=== PATIENT | male | born 1935 | race Caucasian/White ===

== ENCOUNTER 2017-10-20 11:04 | Day surgery (SDC) | payer MEDICARE ==
[2017-10-19 08:59] VITALS: BMI 31.1
[2017-10-20] MEDS ORDERED: CEFAZOLIN/Water 2 GM/20 ML SYRINGE ONE (12:19)
[2017-10-20] MEDS ORDERED: Bupivacaine HCl 0.5%/Epinephrine 1:200,000/PF 30 ml Vial ONE (12:39)
[2017-10-20] MEDS ORDERED: Lidocaine 2% 10 ML INJ ONE (12:39)
[2017-10-20] MEDS ORDERED: Fentanyl 100 MCG/2 ML VIAL ONE (12:48)
[2017-10-20] MEDS ORDERED: Midazolam HCl 2 mg/2 ml Vial ONE (12:48)
--- NOTE | 2017-10-21 01:06 | OP ---
DATE OF PROCEDURE: 10/20/2017 PREOPERATIVE DIAGNOSIS: Soft tissue mass, buttock. POSTOPERATIVE DIAGNOSIS: Soft tissue mass, buttock. PROCEDURE: Excision of soft tissue mass, buttock, 4 cm. SURGEON: Jethro Ashley M.D. ANESTHESIA: General. ESTIMATED BLOOD LOSS: Minimal. COMPLICATIONS: None. SPECIMEN: Soft tissue mass. TECHNIQUE: The patient was taken to the operating room and placed supine on the table. After sedati on was obtained, he was placed in left lateral decubitus position. The area around the buttock is pr epped and draped in a sterile fashion. An elliptical incision was used to ellipse out the pedunculat ed mass including the subcutaneous fat underneath. Specimen was sent to path for final diagnosis. T he wound was irrigated and closed using 3-0 Vicryl, 4-0 Monocryl, and Dermabond. The patient was en route to recovery in stable condition. All instrument counts, needle counts, lap counts were correct .
== END 2017-10-20 15:15 | disposition home or self-care (01) ==
LOC: SDC 11:04
PROVIDERS: ATTEND Surgery
PROC: 0JB70ZZ Excision of Back Subcutaneous Tissue and Fascia, Open Approach (ICD-10-PCS; principal; 2017-10-20)
DX: D18.09 Hemangioma of other sites (principal); I10 Essential (primary) hypertension; E11.9 Type 2 diabetes mellitus without complications; I25.10 Atherosclerotic heart disease of native coronary artery without angina pectoris; Z88.1 Allergy status to other antibiotic agents; Z79.84 Long term (current) use of oral hypoglycemic drugs; Z79.899 Other long term (current) drug therapy
CPT/HCPCS: 36416; 88305; J0670; J2250; J3010

== ENCOUNTER 2018-01-08 21:12 | Inpatient (IN) | payer MEDICARE ==
[2018-01-08 21:42] LABS: Bilirubin Large (Negative); Blood, Urine Large (Negative); Clarity TURBID (Clear); Glucose, Urine (Dipstick) Negative (Negative); Leukocyte Large (Negative); Nitrite Positive (Negative); Protein, Urine (Dipstick) 300 mg/dL (Neg-Trace); Specific Gravity, Urine 1.015 (1.002-1.036); pH, Urine 7.5 (5.0-9.0)
[2018-01-08 21:47] LABS: Pathc Cast-AUWi Flag 20.82 (0-2.49); RBC/HPF GREATER THAN 50-TNTC HPF (0-3); Yeast-AUWi Flag 1976.6 (0-25.0)
[2018-01-08 21:48] LABS: Bacteria/HPF 2+ HPF (None Seen); Yeast-All Forms None Seen HPF (None Seen)
[2018-01-08 21:49] LABS: Crystals/HPF 2+ AMORPH PHOS HPF (Negative); Hyaline Casts/LPF 0-3 HYALINE CAST LPF (0-3 Hyaline); Manual Microscopic Reviewed? No Path Casts Seen
[2018-01-08 22:03] LABS: #Eosinphils 0.6 thou/uL (0.0-0.7); #Lymphocytes 1.4 thou/uL (1.20-3.40); #Monocytes 1.1 thou/uL (0.11-0.59); #Neutrophils 6.6 thou/uL (1.40-6.50); %Basophils 0.3 % (0.0-1.0); %Eosinophils 6.2 % (0.0-10.0); %Lymphocytes 14.6 % (21.0-51.0); %Monocytes 10.9 % (0.0-10.0); Hemoglobin 13.6 g/dL (14.0-18.0); Mean Corpuscular HGB CONC 32.9 g/dL (32.0-36.0); Mean Corpuscular Volume 91.2 fL (78.0-98.0); Mean Platelet Volume 6.3 fL (7.4-10.4); Platelet Count 367 thou/uL (130-400); RBC Distribution Width 12.8 % (11.5-14.5); Red Blood Cell (RBC) Count 4.54 mill/uL (4.70-6.10); White Blood Cell (WBC) Count 9.6 thou/uL (4.8-10.8)
[2018-01-08] MEDS ORDERED: Lidocaine 1% PF 5 ML VIAL ONE (22:04)
[2018-01-08] MEDS ORDERED: cefTRIAXone\\ROCEPHIN 1 GM VIAL ONE (22:04)
[2018-01-08 22:23] LABS: ALT (SGPT) Less than 7 U/L (8-55); AST (SGOT) 16 U/L (5-34); Albumin 3.2 g/dL (3.4-4.8); Alkaline Phosphatase 175 U/L (40-150); Anion Gap 11 mmol/L (10-20); BUN (Urea Nitrogen) 17 mg/dL (8.4-25.7); Bilirubin, Total 0.4 mg/dL (0.2-1.2); Calc. Creatinine Clearance 0 mL/min (70-130); Calcium 8.7 mg/dL (7.8-10.44); Carbon Dioxide 29 mmol/L (23-31); Chloride 102 mmol/L (98-107); Estimated GFR-MDRD 34; Globulin 3.7 g/dL (2.4-3.5); Glucose 163 mg/dL (83-110); Protein, Total 6.9 g/dL (5.8-8.1); Sodium 138 mmol/L (136-145)
[2018-01-09] MEDS ORDERED: cefTRIAXone\\ROCEPHIN 1 GM VIAL ONE (00:01)
[2018-01-09] MEDS ORDERED: Ondansetron ODT 4 MG TAB SL PRN (01:44)
[2018-01-09] MEDS ORDERED: Acetaminophen 325 MG TAB PO PRN ×2 (01:44→11:59)
[2018-01-09] MEDS ORDERED: Ondansetron HCl/PF 4 MG/2 ML Vial IVP PRN ×2 (01:44→11:59)
[2018-01-09] MEDS ORDERED: Sodium Chloride 0.9% 1,000 ML IV SCH (01:45)
[2018-01-09 01:50] VITALS: BMI 30.6
[2018-01-09] MEDS ORDERED: VANCOMYCIN IVPB PRN (05:57)
[2018-01-09] MEDS ORDERED: Nystatin Cream 15 GM TUBE TOP SCH (09:00)
--- NOTE | 2018-01-09 10:26 | ULT ---
RENAL ULTRASOUND: HISTORY: UTI, hematuria. FINDINGS: Real-time imaging of the right and left kidneys were performed. The right kidney measured 11.1 and t he left kidney 10.8 cm in size. In the mid pole region of the right kidney is a somewhat hypoechoic focus very similar in echogenicity to the cortex but extending more into the renal pelvis than typica jaimey seen. I still feel that this is related to the cortex but given the history of hematuria, the po ssibility of a mass was not totally excluded. The left kidney shows a suggestion of some mild cortic al thinning. There is no obstruction. The bladder has a Pena catheter in place. IMPRESSION: Hypoechoic area in the mid pole renal pelvis on the right. I think this is just invagination of the cortex, but it has a somewhat unusual appearance and extends more into the renal pelvis than would be typically seen for lobulation. Given the history of hematuria, I cannot definitely exclude the poss ibility of a mass and I would suggest a CT using renal mass protocol for further assessment. POS: [facility]
[2018-01-09] MEDS ORDERED: Calcium Carbonate 500 MG ChewTAB PO PRN (11:59)
[2018-01-09] MEDS ORDERED: Ondansetron ODT 4 MG TAB PO PRN (11:59)
[2018-01-09] MEDS ORDERED: Milk Of Magnesia 30 ML UDCUP PO PRN (12:05)
[2018-01-09] MEDS ORDERED: Senokot 8.6 MG TAB PO PRN (12:05)
[2018-01-09] MEDS ORDERED: Dextrose 5% in Water 1,000 ML IV PRN (12:09)
[2018-01-09] MEDS ORDERED: Insulin Regular 300 UNITS/3 ML VIAL SC PRN (12:09)
[2018-01-09] MEDS ORDERED: Dextrose 50% Abboject 50 ML SYRINGE SLOW IVP PRN (12:09)
[2018-01-09 12:43] LABS: #Eosinphils 0.4 thou/uL (0.0-0.7); #Lymphocytes 0.9 thou/uL (1.20-3.40); #Monocytes 0.7 thou/uL (0.11-0.59); #Neutrophils 6.5 thou/uL (1.40-6.50); %Basophils 0.2 % (0.0-1.0); %Eosinophils 4.4 % (0.0-10.0); %Lymphocytes 10.3 % (21.0-51.0); %Monocytes 8.4 % (0.0-10.0); %Neutrophils 76.7 % (42.0-75.0); Hemoglobin 12.9 g/dL (14.0-18.0); Mean Corpuscular Volume 90.6 fL (78.0-98.0); Mean Platelet Volume 6.5 fL (7.4-10.4); Platelet Count 323 thou/uL (130-400); RBC Distribution Width 12.8 % (11.5-14.5); Red Blood Cell (RBC) Count 4.45 mill/uL (4.70-6.10); White Blood Cell (WBC) Count 8.5 thou/uL (4.8-10.8)
--- NOTE | 2018-01-09 12:56 | HP ---
DATE OF ADMISSION: 01/09/2018 PRIMARY CARE PHYSICIAN: Tanya Louis M.D. PRIMARY NEUROLOGIST: Jaya Astudillo M.D. Primary urologist: Dr. Cabrera. CHIEF COMPLAINT: Gross hematuria with lower abdominal discomfort. HISTORY OF PRESENT ILLNESS: The patient is an 82-year-old male with chronic indwelling Pena cathete r secondary to benign prostatic hypertrophy, Parkinson disease, diabetes mellitus type 2, hypertensio n who presented to the emergency room with above complaints. The patient has a chronic indwelling Pena catheter for 3 months or so. He was seen by his urologist last week and had a catheter changed. Subsequently at home, the catheter stopped draining. The pat ient was seen by the home healthcare and the catheter was adjusted after which he started draining ur ine. Next day, the patient noticed gross hematuria along with increasing discomfort for which he pre sented to the emergency room. He denies any fever, chills, or flank pain. He is currently on naprox en for degenerative joint disease. He does not take any other antiplatelet or anticoagulants. Yaquelin soares note the patient is a poor historian and not much information is available from the patient. No fa ezra was at the bedside. In the emergency room, his initial vital signs showed temperature 98.1, respirations 20, pulse rate o f 81 with a blood pressure of 128/63, O2 saturation 96% on room air. He was found to have acute kidn ey injury with creatinine 1.88 with a baseline creatinine around 1.4. His urinalysis showed greater than 50 WBCs and RBCs with 2+ bacteria. He received vancomycin and Rocephin. Blood and urine cultur es were sent. PAST MEDICAL HISTORY: 1. Diabetes mellitus type 2. 2. Hypertension. 3. History of bladder cancer. 4. Hyperlipidemia. 5. Physical deconditioning. 6. Parkinson disease. 7. Degenerative joint disease. 8. Benign prostatic hypertrophy. PAST SURGICAL HISTORY: 1. Appendectomy. 2. Bladder cancer removal. 3. Tonsillectomy. 4. Adenoidectomy. 5. Hip surgery. 6. Gallbladder surgery. 7. Excision of the soft tissue mass earlier this year. ALLERGIES: Patient is allergic to LEVAQUIN, reaction unknown. CURRENT HOME MEDICATIONS: Naproxen 220 mg daily, Sinemet 25-50 one tablet t.i.d., finasteride 5 mg d aily, glimepiride 0.5 mg tablet 3 times a day, Lisinopril 2.5 mg daily, metformin 500 mg at night and 250 mg daily, Procardia-XL 30 mg daily, pravastatin 40 mg daily, ranitidine 150 mg daily, Flomax 0.4 mg daily. FAMILY HISTORY: Positive for hypertension, diabetes, and CVA. SOCIAL HISTORY: The patient currently has home healthcare twice a week. He is unable to recall the name of the agency. He denies any smoking, alcohol. Lives at home with his . He is F[employer] a nd his is the decision maker. REVIEW OF SYSTEMS: The following complete review of systems was negative, unless otherwise mentioned in the HPI or below: Constitutional: Weight loss or gain, ability to conduct usual activities. Sk in: Rash, itching. Eyes: Double vision, pain. ENT/Mouth: Nose bleeding, neck stiffness, pain, te nderness. Cardiovascular: Palpitations, dyspnea on exertion, orthopnea. Respiratory: Shortness of breath, wheezing, cough, hemoptysis, fever or night sweats. Gastrointestinal: Poor appetite, abdom inal pain, heartburn, nausea, vomiting, constipation, or diarrhea. Genitourinary: Urgency, frequenc y, dysuria, nocturia. Musculoskeletal: Pain, swelling. Neurologic/Psychiatric: Anxiety, depressio n. Allergy/Immunologic: Skin rash, bleeding tendency. PHYSICAL EXAMINATION: VITAL SIGNS: As discussed above. GENERAL: An 82-year-old male in mild distress due to discomfort secondary to Pena along with erythe ma in the groin. HEENT: Atraumatic, normocephalic. Sclerae are anicteric. Moist mucous membrane, no oral lesion. NECK: Supple, no JVD, no carotid bruit. LUNGS: Clear to auscultation bilaterally, no wheezing, rales or rhonchi. HEART: S1, S2 present. Regular rate and rhythm, 2/6 systolic murmur over the mitral area. No heave s or pulsation. ABDOMEN: Soft, mild tenderness in the infraumbilical area. No rebound, guarding, no costovertebral angle tenderness. EXTREMITIES: No edema or calf tenderness. GENITOURINARY: Pena catheter noted draining bright red urine with some clots. There is excoriation in the groin along with erythema and warmth. NEUROLOGIC: Grossly nonfocal, moves all four extremities. No new focal deficit appreciated. PSYCHIATRY: Alert and awake. SKIN: Warm and dry other findings as discussed above. PERIPHERAL VASCULAR: Radial pulses palpable bilaterally. MUSCULOSKELETAL: No joint swelling or tenderness. LABORATORY FINDINGS: 1. Renal ultrasound showed some hypoechoic area in the mid pole of the renal pelvis on the right. 2. CBC showed WBC 9.6 with hemoglobin 13.6, hematocrit 41.4, platelet 367. Chemistries showed sodiu m 138, potassium 4, chloride 102, bicarbonate 29, BUN 17, creatinine 1.88. 3. Albumin 3.2 with total protein 6.9. IMPRESSION: 1. Catheter associated urinary tract infection with gross hematuria and cellulitis of the perineal a brett. 2. Acute blood loss anemia. 3. Acute kidney injury on chronic kidney disease stage 3. 4. Diabetes mellitus type 2. 5. Hypertension. 6. Obesity with a BMI 30.6. 7. Dehydration. 8. Benign prostatic hypertrophy. 9. Degenerative joint disease. 10. Hyperlipidemia. 11. Gastroesophageal reflux disease. PLAN: The patient will be monitored on the medical floor. Urology will be consulted. We will start him on gentle hydration. We will hold lisinopril. We will discontinue nonsteroidal anti-inflammato ry drugs. We will continue ceftriaxone. We will also continue vancomycin for cellulitis. We will a wait blood and urine culture. We will also add nystatin powder. Patient will probably require CBI. He may probably require a CT renal mass protocol due to abnormal renal ultrasound. Further manageme nt for gross hematuria per Urology. We will monitor H and H closely. Consult physical therapy, occu pation therapy. Deep venous thrombosis prophylaxis with sequential compression devices. Plan of care was discussed with the patient in detail. He stated understanding.
[2018-01-09] MEDS ORDERED: Vancomycin HCl 1 GM in Premix Bag 1 BAG IVPB SCH ×3 (13:00→23:59)
[2018-01-09 13:04] LABS: Anion Gap 13 mmol/L (10-20); BUN (Urea Nitrogen) 20 mg/dL (8.4-25.7); Calc. Creatinine Clearance 57 mL/min (70-130); Calcium 8.3 mg/dL (7.8-10.44); Carbon Dioxide 24 mmol/L (23-31); Chloride 105 mmol/L (98-107); Estimated GFR-MDRD 48; Glucose 171 mg/dL (83-110); Potassium 4.2 mmol/L (3.5-5.1); Sodium 138 mmol/L (136-145)
[2018-01-09] MEDS: Carbidopa/Levodopa 25-250 mg Tablet PO SCH ×2 (14:36→20:15)
[2018-01-09] MEDS: Sodium Chloride 0.9% 1,000 ML IV SCH (14:36)
[2018-01-09] MEDS: Vancomycin HCl 1.5 GM in Sodium Chloride 0.9% 250 ML 300 ML IVPB SCH (17:34)
[2018-01-09] MEDS: Finasteride 5 MG TAB PO SCH (20:14)
[2018-01-09] MEDS: Docusate 100 MG CAP PO SCH (20:14)
[2018-01-09] MEDS: Tamsulosin HCl 0.4 MG CAP PO SCH (20:14)
[2018-01-09] MEDS: TROSPIUM 20 MG TABLET PO SCH (20:14)
[2018-01-09] MEDS: Famotidine 20 MG TAB PO SCH (20:15)
[2018-01-09] MEDS ORDERED: Atorvastatin Calcium 10 MG TAB PO SCH (21:00)
[2018-01-09] MEDS ORDERED: Pravastatin Sodium 40 MG TAB PO SCH (21:00)
[2018-01-09] MEDS: cefTRIAXone\\ROCEPHIN 1 GM in Sodium Chloride 0.9% 100 ML IVPB SCH (22:06)
--- NOTE | 2018-01-09 23:31 | CON ---
DATE OF CONSULTATION: 01/09/2018 CONSULTING PHYSICIAN: Desean Norris MD MIXING AND MOLDING MACHINE OPERATOR: Sachin Liu MD REASON FOR CONSULTATION: Gross hematuria and urinary tract infection. HISTORY OF PRESENT ILLNESS: Mr. Castillo is an 82-year-old white male with a history of bladder canc er and urinary retention, currently managed by Dr. Cabrera at the [facility], who is his current urologist . The patient has a history of bladder cancer, which has previously been treated with Dr. Weston in the remote past. He has had surveillance cystoscopies with Dr. Cabrera since then, but has only a ctually had one with Dr. Cabrera about 4 months ago. He also has a history of an enlarged prostate , which was treated with TUMT in the past with Dr. Weston. Apparently, the patient has had signific ant amount of urinary problem since then and actually had ultimately went into urinary retention appr oximately 3-4 months ago. He has had a number of attempted void trial since then, which have failed and so the patient is kept in an indwelling catheter due to his comorbidities, nonambulatory status, and significant difficulty with urination. The patient began having blood in his urine and around hi s catheter yesterday, and he was brought into the emergency room due to this issue. He was found to have likely urinary tract infection and was started on antibiotics. I was consulted for further assi stance due to his hematuria. On my discussion with the patient, he currently states that he is not h aving any pain. He is leaking a lot of bloody urine around his catheter, but his catheter continues to drain. From this morning, his urine was very red, but has now cleared up quite a bit to just a tr anslucent dark pink. He denies any bladder spasms. He denies any chest pain, shortness of breath, n ausea, vomiting, lightheadedness, dizziness, or catheter-related pain. He has already been started o n antibiotics. He does have an elevated creatinine with a baseline around 1.4 with a creatinine curr ently around 1.88. PAST MEDICAL HISTORY: 1. Diabetes mellitus type 2. 2. Hypertension. 3. Bladder cancer. 4. Hyperlipidemia. 5. Physical deconditioning. 6. Parkinson's disease. 7. Degenerative joint disease. 8. Benign prostatic hypertrophy. 9. Chronic lower extremity edema. PAST SURGICAL HISTORY: 1. Appendectomy. 2. TURBT. 3. Tonsillectomy. 4. Adenoidectomy. 5. Hip surgery. 6. Cholecystectomy. 7. Excision of soft tissue mass on his buttocks earlier this year by Dr. Ashley. HOME MEDICATIONS: 1. Naproxen. 2. Sinemet. 3. Finasteride. 4. Glimepiride. 5. Lisinopril. 6. Metformin. 7. Procardia. 8. Ranitidine. 9. Flomax. ALLERGIES: LEVAQUIN. FAMILY HISTORY: Significant for hypertension, diabetes, and history of CVA. SOCIAL HISTORY: The patient currently lives at home, but receives home health care. He denies smoki ng or alcohol abuse. He apparently smoked in the past. He lives at home with his . REVIEW OF SYSTEMS: A 12-point review of systems was reviewed and otherwise negative, other than what was commented on the HPI. Specifically, the hematuria and urinary retention. PHYSICAL EXAMINATION: VITAL SIGNS: Temperature 97.8, pulse 74, respirations 20, blood pressure 128/72, saturation 96% on r oom air. GENERAL: No apparent distress, communicative and alert, answering questions appropriately. He appea rs stated age, well nourished, well developed. HEENT: Normocephalic, atraumatic. Sclerae are nonicteric. Pupils are symmetric and round. Moist m ucous membranes. Trachea midline. CARDIOVASCULAR: Regular rate and rhythm. Normal S1 and S2. Symmetric pulses. CHEST: No increased work of breathing. Symmetric expansion of lungs. Clear anteriorly. ABDOMEN: Soft, nontender, nondistended. Positive bowel sounds. No organomegaly. No significant lopez prapubic tenderness. GENITOURINARY: Pena catheter is in place with a significant amount of blood around the catheter and on the foreskin. The patient is uncircumcised. Foreskin is reduced. Scrotum demonstrates redness and erythema, but no significant edema, fluctuance, or abscess. Testicles are bilaterally descended and nontender. ARNAV was not performed as the patient is significantly immobile and could not adequate ly turn over for rectal examination. Also, he has a recent buttock incision and stated he did not wa nt to aggravate this. EXTREMITIES: 2+ edema bilaterally with chronic stasis dermatitis and vesicles with cellulitis. No o bvious clubbing or cyanosis otherwise. MUSCULOSKELETAL: No obvious joint deformities or joint erythema noted. The patient does have full r shirley of motion, but significant weakness of the lower extremities with crepitus on the knees. NEUROLOGIC: Cranial nerves II-XII appeared grossly intact. No focal sensory or motor deficits ident ified. The patient does not have a resting tremor, but intention tremors were not evaluated. SKIN: Warm, dry. Poor turgor. No rashes or lesions. PSYCHIATRIC: Alert and oriented x3. Appropriate mood and affect. LABORATORY AND X-RAY FINDINGS: A full set of labs is in the [facility] system, which I have reviewed. The patient's white count is currently 8.5 with a hemoglobin of 12.9, creatinine is down to 1.4 from 1.88. Urinalysis demonstrates nitrite-positive urine with large blood, greater than 50 white cells, greater than 50 red cells, 2+ bacteria. Urine culture demonstrates mixed culture. Isolation is cur rently in progress. ASSESSMENT AND PLAN: An 82-year-old white male with history of bladder cancer and urinary retention, which appears to likely be chronic at this point, due to significant BPH despite his transurethral m icrowave thermotherapy. He apparently has scarring within the urethra based on the prior cystoscopy by Dr. Cabrera. It is unclear currently where his hematuria is coming from, but good possibilities include urinary tract infection, benign prostatic hypertrophy, or recurrent cancer. At the current time, I agree with antibiotics given his hematuria, and I would recommend he be completed for at leas t a 7 to 10-day course of antibiotics, at which time, his hematuria should clear on its own. For now , the hematuria appears to be getting better. Therefore, I do not think it is necessary to change hi s catheter out for a larger catheter. We will leave the current catheter in and if the hematuria shannan ars enough, I think the patient can be discharged on oral antibiotics when appropriate by the primary team. He should then follow up with Dr. Cabrera for repeat cystoscopy to ensure that there is not a recurrent cancer or other concerning source of hematuria. From my standpoint, the patient does ap pear to be having some leakage around his catheter, for which we can start him on trospium to limit b ladder spasms and leakage, which should also help his fungal infection which he currently has on his groin. I agree with the use of nystatin powder for the fungal dermatitis. It will be ideal to keep this area as dry as possible to avoid exacerbation of the fungus given the patient is currently recei ving broad-spectrum antibiotics, which will likely worsen the fungal infection. If necessary, system ic fluconazole can be given if the nystatin is not adequately treating the fungal dermatitis. I will continue to follow along to ensure the hematuria is clearing adequately. Nursing may perform bladde r flushes p.r.n. for clots and when he is discharged, he should follow up with Dr. Cabrera.
[2018-01-10] MEDS ORDERED: Aquaphor 30 GM 99 GM, Cholestyramine/Aspartame 4 GM TOP PRN (03:44)
[2018-01-10 05:00] LABS: #Eosinphils 0.6 thou/uL (0.0-0.7); #Lymphocytes 1.2 thou/uL (1.20-3.40); #Monocytes 0.8 thou/uL (0.11-0.59); #Neutrophils 6.1 thou/uL (1.40-6.50); %Basophils 0.4 % (0.0-1.0); %Eosinophils 6.8 % (0.0-10.0); %Lymphocytes 13.9 % (21.0-51.0); %Monocytes 9.1 % (0.0-10.0); %Neutrophils 69.8 % (42.0-75.0); Hemoglobin 12.7 g/dL (14.0-18.0); Mean Corpuscular HGB CONC 32.3 g/dL (32.0-36.0); Mean Corpuscular Hemoglobin 29.4 pg (27.0-31.0); Mean Platelet Volume 6.7 fL (7.4-10.4); Platelet Count 319 thou/uL (130-400); RBC Distribution Width 12.7 % (11.5-14.5); Red Blood Cell (RBC) Count 4.33 mill/uL (4.70-6.10); White Blood Cell (WBC) Count 8.8 thou/uL (4.8-10.8)
[2018-01-10 05:21] LABS: Anion Gap 14 mmol/L (10-20); BUN (Urea Nitrogen) 18 mg/dL (8.4-25.7); Calc. Creatinine Clearance 61 mL/min (70-130); Calcium 8.3 mg/dL (7.8-10.44); Carbon Dioxide 22 mmol/L (23-31); Chloride 107 mmol/L (98-107); Estimated GFR-MDRD 52; Glucose 103 mg/dL (83-110); Potassium 4.3 mmol/L (3.5-5.1); Sodium 139 mmol/L (136-145)
[2018-01-10] MEDS ORDERED: Lisinopril 2.5 MG TAB PO SCH (09:00)
[2018-01-10] MEDS: NIFEdipine XL 30 MG TAB PO SCH (09:02)
[2018-01-10] MEDS: Docusate 100 MG CAP PO SCH ×2 (09:03→20:10)
[2018-01-10] MEDS: Carbidopa/Levodopa 25-250 mg Tablet PO SCH ×3 (09:03→20:10)
[2018-01-10] MEDS: TROSPIUM 20 MG TABLET PO SCH ×2 (09:03→20:10)
[2018-01-10] MEDS: Famotidine 20 MG TAB PO SCH ×2 (09:03→20:10)
[2018-01-10] MEDS: Glimepiride 1 MG TAB PO SCH (09:03)
[2018-01-10] MEDS: Insulin Regular 300 UNITS/3 ML VIAL SC PRN (13:00)
[2018-01-10] MEDS: Sodium Chloride 0.9% 1,000 ML IV SCH ×2 (13:02→21:19)
[2018-01-10] MEDS: Aquaphor 30 GM 99 GM, Cholestyramine/Aspartame 4 GM TOP SCH ×2 (15:50→20:11)
[2018-01-10] MEDS ORDERED: Fluconazole 100 MG TAB PO SCH (16:15)
[2018-01-10 17:47] LABS: Vancomycin, Trough 10.4 ug/mL
[2018-01-10] MEDS: Vancomycin HCl 1.5 GM in Sodium Chloride 0.9% 250 ML 300 ML IVPB SCH (18:08)
--- NOTE | 2018-01-10 19:00 | PRG ---
DATE OF SERVICE: 01/10/2017 SUBJECTIVE: The patient states he is doing well. He has no pain. His urine has cleared up complete ly. He states that he may be discharged soon by the Hospitalist Service to a swing bed. OBJECTIVE: VITAL SIGNS: Temperature 98.3, pulse 72, respirations 20, blood pressure 131/68, saturation 93% on r oom air. GENERAL: No apparent distress, communicative and alert. CARDIOVASCULAR: Regular rate and rhythm. CHEST: No increased work of breathing. ABDOMEN: Soft, nontender, nondistended, positive bowel sounds. GENITOURINARY: Pena catheter in place, secured with clear yellow urine. EXTREMITIES: 2+ edema with cyanosis and stasis dermatitis. LABORATORY DATA: The full set of labs in the [facility] system, which I reviewed. Of note, the patien t's white count is 8.8 with hemoglobin of 12.7, creatinine is 1.32. A renal ultrasound done from Dec demonstrates hypoechoic area in the mid pole of the right renal pelvis, which may be an invagination of the cortex but urothelial cancer or renal cell carcinoma cannot be excluded. No h ydronephrosis. ASSESSMENT AND PLAN: An 82-year-old white male with gross hematuria and urinary tract infection with chronic indwelling catheter with clearance of his hematuria with treatment of the infection. At thi s point, nothing further needs to be done from my standpoint. He will need to keep his catheter in a s he does have chronic urinary retention managed by indwelling Pena catheter. The hematuria is now gone and culture appropriate antibiotics can be started for the patient once his culture finalizes. Upon discharge, he should go home on antibiotics and with his Pena catheter and follow up with Dr. Rosa Isela nathan. There is obviously some concern regarding an issue on his kidney which may represent a rec urrence of urothelial carcinoma or renal cell carcinoma. Given the patient just had an acute kidney injury and urinary infection, I would not recommend a contrasted CT scan at this time, but can be don e as an outpatient with Dr. Cabrera. I have pressed upon the patient's and the patient to andrae e sure that they pass this information along to Dr. Cabrera to repeat a CT scan in the future, but from my standpoint, he does not need to follow up with me, but just follow up with Dr. daniel as an ou tpatient. I will go ahead and sign off on this case and please reconsult or call if there are any qu estions.
[2018-01-10] MEDS: Tamsulosin HCl 0.4 MG CAP PO SCH (20:10)
[2018-01-10] MEDS: Nystatin Powder 15 GM BOT TOP SCH (20:10)
[2018-01-10] MEDS: Finasteride 5 MG TAB PO SCH (20:10)
[2018-01-10] MEDS: cefTRIAXone\\ROCEPHIN 1 GM in Sodium Chloride 0.9% 100 ML IVPB SCH (21:19)
--- NOTE | 2018-01-10 23:26 | PDOC.PN ---
- Subjective Encounter Start Date: 01/10/18 Encounter Start Time: 16:30 Patient seen and examined for UTI/Gross hematuria/JABIER. Hematuria improving. No fever/chills. No overnight events - Objective Resuscitation Status: Resuscitation Status FULL:Full Resuscitation MAR Reviewed: Yes Vital Signs & Weight: Vital Signs (12 hours) Temp Pulse Resp BP Pulse Ox 01/10/18 20:00 97.4 F L 82 20 124/68 94 L 01/10/18 16:58 98.3 F 72 20 131/68 93 L 01/10/18 11:27 97 F L 74 20 138/75 94 L Weight Admit Weight 225 lb 9.6 oz Weight 225 lb 9.6 oz I&O: 01/09/18 01/10/18 01/11/18 06:59 06:59 06:59 Intake Total 380 1945 540 Output Total 650 1100 Balance -270 845 540 Result Diagrams: 01/10/18 03:59 01/10/18 03:59 Additional Labs: Accuchecks 01/10/18 01/10/18 01/10/18 20:21 16:46 11:28 POC Glucose 136 H 154 H 164 H 01/10/18 01/09/18 04:13 16:48 POC Glucose 119 H 115 H Phys Exam - Physical Examination Constitutional: NAD Respiratory: no wheezing, no rhonchi Cardiovascular: RRR, no rub Gastrointestinal: soft, non-tender, positive bowel sounds jamison present Musculoskeletal: no edema Neurological: moves all 4 limbs Dx/Plan - Plan IMPRESSION: 1. Catheter associated urinary tract infection with gross hematuria and cellulitis of the perineal area/fungal dermatitis 2. Acute blood loss anemia. 3. Acute kidney injury on chronic kidney disease stage 3. 4. Diabetes mellitus type 2. 5. Hypertension. 6. Obesity with a BMI 30.6. 7. Dehydration. 8. Benign prostatic hypertrophy. 9. Degenerative joint disease. 10. Hyperlipidemia. 11. Gastroesophageal reflux disease. PLAN: Cont Ceftriaxone DC Vancomycin Add Doxycycline Reduce IVF to 50 ml/hr SNF Eval Treat constipation Cont other meds as below Microbiology 01/09/18 00:10 Venous blood - Left Arm Blood Culture - Preliminary Specimen has been received and culture in progress. No Growth to date. 01/09/18 00:05 Venous blood - Right Arm Blood Culture - Preliminary Specimen has been received and culture in progress. No Growth to date. 01/08/18 21:27 Urine jamison catheter Urine Culture - Preliminary Gram Negative William Presumptive Kleb/Enterobacter Review of Systems - Review of Systems Cardiovascular: negative: chest pain, palpitations, orthopnea, paroxysmal nocturnal dyspnea, edema, light headedness, other Gastrointestinal: negative: Nausea, Vomiting, Abdominal Pain, Diarrhea, Constipation, Melena, Hematochezia, Other - Medications/Allergies Allergies/Adverse Reactions: Allergies Allergy/AdvReac Type Severity Reaction Status Date / Time levofloxacin [From Levaquin] Allergy Intermediate Verified 01/09/18 01:44 Medications: Current Medications Acetaminophen (Tylenol) 650 mg PO Q4H PRN PRN Reason: Headache/Fever or Pain Calcium Carbonate (Tums) 1,000 mg PO Q4H PRN PRN Reason: Heartburn or Indigestion Carbidopa/Levodopa (Sinemet 25-250) 1 tab PO TID [facility] Last Admin: 01/10/18 20:10 Dose: 1 tab Mineral Oil/White Petrolatum 99 gm/ Cholestyramine Resin 4 gm 0 gm TOP BID [facility] Last Admin: 01/10/18 20:11 Dose: 1 oint Mineral Oil/White Petrolatum 99 gm/ Cholestyramine Resin 4 gm 0 gm TOP PRN PRN PRN Reason: Rash/Topical Irritation Dextrose/Water (Dextrose 50%) 25 gm SLOW IVP PRN PRN PRN Reason: Hypoglycemia Docusate Sodium (Colace) 100 mg PO BID [facility] Last Admin: 01/10/18 20:10 Dose: 100 mg Famotidine (Pepcid) 20 mg PO BID [facility] Last Admin: 01/10/18 20:10 Dose: 20 mg Finasteride (Proscar) 5 mg PO QPM [facility] Last Admin: 01/10/18 20:10 Dose: 5 mg Fluconazole (Diflucan) 100 mg PO DAILY [facility] Glimepiride (Amaryl) 0.5 mg PO QAM-WM [facility] Last Admin: 01/10/18 09:03 Dose: 0.5 mg Glucagon (Glucagon) 1 mg IM PRN PRN PRN Reason: Hypoglycemia Ceftriaxone Sodium 1 gm/ (Sodium Chloride) 100 mls @ 200 mls/hr IVPB Q24HR [facility] Last Admin: 01/10/18 21:19 Dose: 100 mls Sodium Chloride (Normal Saline 0.9%) 1,000 mls @ 75 mls/hr IV .[id number] [facility] Last Admin: 01/10/18 21:19 Dose: Not Given Dextrose/Water (D5w) 1,000 mls @ 0 mls/hr IV .Q0M PRN PRN Reason: Hypoglycemia Vancomycin HCl 1 gm/ Device 200 mls @ 200 mls/hr IVPB 0600,1800 JAM Insulin Human Regular (Humulin R) 0 units SC .MILD SLIDING SCALE PRN PRN Reason: Mild Correctional Scale Last Admin: 01/10/18 13:00 Dose: 2 unit Insulin Human Regular (Humulin R) 0 units SC .BEDTIME SLIDING SC PRN PRN Reason: Bedtime Correctional Scale Magnesium Hydroxide (Milk Of Magnesium) 30 ml PO DAILYPRN PRN PRN Reason: Constipation Miscellaneous Medication (Pharmacy To Dose) 1 each IVPB PRN PRN PRN Reason: EMPIRIC Nifedipine (Procardia Xl) 30 mg PO QAM [facility] Last Admin: 01/10/18 09:02 Dose: 30 mg Nystatin (Mycostatin Powder) 0 gm TOP BID [facility] Last Admin: 01/10/18 20:10 Dose: 1 applic Senna (Senokot) 2 tab PO HSPRN PRN PRN Reason: Constipation Sodium Chloride (Flush - Normal Saline) 10 ml IVF Q12HR [facility] Last Admin: 01/10/18 20:11 Dose: Not Given Sodium Chloride (Flush - Normal Saline) 10 ml IVF PRN PRN PRN Reason: Saline Flush Tamsulosin HCl (Flomax) 0.4 mg PO QPM [facility] Last Admin: 01/10/18 20:10 Dose: 0.4 mg Trospium (Trospium) 20 mg PO BID [facility] Last Admin: 01/10/18 20:10 Dose: 20 mg
[2018-01-11] MEDS: Sodium Chloride 0.9% 1,000 ML IV SCH ×2 (03:21→21:51)
[2018-01-11] MEDS ORDERED: Vancomycin HCl 1 GM in Premix Bag 1 BAG IVPB SCH (06:00)
[2018-01-11] MEDS: Glimepiride 1 MG TAB PO SCH (08:10)
[2018-01-11] MEDS: Doxycycline 100 MG CAP PO SCH ×2 (08:10→20:17)
[2018-01-11] MEDS: TROSPIUM 20 MG TABLET PO SCH ×2 (08:10→20:17)
[2018-01-11] MEDS: Fluconazole 100 MG TAB PO SCH (08:10)
[2018-01-11] MEDS: NIFEdipine XL 30 MG TAB PO SCH (08:11)
[2018-01-11] MEDS: Senokot S 8.6-50 MG TAB PO SCH ×2 (08:12→20:17)
[2018-01-11] MEDS: Carbidopa/Levodopa 25-250 mg Tablet PO SCH ×3 (08:12→20:16)
[2018-01-11] MEDS: Famotidine 20 MG TAB PO SCH ×2 (08:13→20:25)
[2018-01-11] MEDS: Aquaphor 30 GM 99 GM, Cholestyramine/Aspartame 4 GM TOP SCH ×2 (08:13→20:18)
[2018-01-11] MEDS: Nystatin Powder 15 GM BOT TOP SCH ×2 (08:13→20:17)
[2018-01-11] MEDS: Polyethylene Glycol 3350 17 GM Packet PO SCH (08:17)
[2018-01-11] MEDS ORDERED: [UNRECOGNIZED DRUG - REMARK] IVPB PRN (09:02)
[2018-01-11] MEDS: Cefepime 1 GM in Sodium Chloride 0.9% 100 ML IVPB SCH ×2 (10:53→21:50)
--- NOTE | 2018-01-11 19:48 | PDOC.PN ---
- Subjective Encounter Start Date: 01/11/18 Encounter Start Time: 14:45 Patient seen and examined for UTI/Hematuria. No new complaints. No overnight events - Objective Resuscitation Status: Resuscitation Status FULL:Full Resuscitation MAR Reviewed: Yes Vital Signs & Weight: Vital Signs (12 hours) Temp Pulse Resp BP BP Pulse Ox 01/11/18 16:41 97.8 F 81 18 153/74 H 94 L 01/11/18 08:11 60 127/68 01/11/18 08:00 95 Weight Admit Weight 225 lb 9.6 oz Weight 225 lb 9.6 oz I&O: 01/10/18 01/11/18 01/12/18 06:59 06:59 06:59 Intake Total 2211 799 1580 Output Total 1100 1525 Balance 845 540 19 Result Diagrams: 01/10/18 03:59 01/10/18 03:59 Additional Labs: Accuchecks 01/11/18 01/11/18 01/11/18 16:44 11:13 04:17 POC Glucose 127 H 146 H 114 H 01/10/18 20:21 POC Glucose 136 H Phys Exam - Physical Examination Constitutional: NAD Respiratory: no wheezing, no rhonchi Cardiovascular: RRR, no rub Gastrointestinal: soft, non-tender, positive bowel sounds Musculoskeletal: no edema Neurological: moves all 4 limbs Dx/Plan - Plan DVT proph w/SCDs IMPRESSION: 1. Catheter associated urinary tract infection with gross hematuria and cellulitis of the perineal area/fungal dermatitis 2. Acute blood loss anemia. 3. Acute kidney injury on chronic kidney disease stage 3. 4. Diabetes mellitus type 2. 5. Hypertension. 6. Obesity with a BMI 30.6. 7. Dehydration. 8. Benign prostatic hypertrophy. 9. Degenerative joint disease. 10. Hyperlipidemia. 11. Gastroesophageal reflux disease. PLAN: Hematuria improving Change Ceftriaxone to Cefepime based on culture Consult ID Cont IVF Cont other meds as below SNF Eval in progress Review of Systems - Review of Systems Respiratory: negative: Cough, Dry, Shortness of Breath, Hemoptysis, SOB with Excertion, Pleuritic Pain, Sputum, Wheezing Cardiovascular: negative: chest pain, palpitations, orthopnea, paroxysmal nocturnal dyspnea, edema, light headedness, other - Medications/Allergies Allergies/Adverse Reactions: Allergies Allergy/AdvReac Type Severity Reaction Status Date / Time levofloxacin [From Levaquin] Allergy Intermediate Verified 01/09/18 01:44 Medications: Current Medications Acetaminophen (Tylenol) 650 mg PO Q4H PRN PRN Reason: Headache/Fever or Pain Calcium Carbonate (Tums) 1,000 mg PO Q4H PRN PRN Reason: Heartburn or Indigestion Carbidopa/Levodopa (Sinemet 25-250) 1 tab PO TID [facility] Last Admin: 01/11/18 14:25 Dose: 1 tab Mineral Oil/White Petrolatum 99 gm/ Cholestyramine Resin 4 gm 0 gm TOP BID [facility] Last Admin: 01/11/18 08:13 Dose: 1 oint Mineral Oil/White Petrolatum 99 gm/ Cholestyramine Resin 4 gm 0 gm TOP PRN PRN PRN Reason: Rash/Topical Irritation Dextrose/Water (Dextrose 50%) 25 gm SLOW IVP PRN PRN PRN Reason: Hypoglycemia Doxycycline Hyclate (Vibramycin) 100 mg PO BID [facility] Last Admin: 01/11/18 08:10 Dose: 100 mg Famotidine (Pepcid) 20 mg PO BID [facility] Last Admin: 01/11/18 08:13 Dose: 20 mg Finasteride (Proscar) 5 mg PO QPM [facility] Last Admin: 01/10/18 20:10 Dose: 5 mg Fluconazole (Diflucan) 100 mg PO DAILY [facility] Last Admin: 01/11/18 08:10 Dose: 100 mg Glimepiride (Amaryl) 0.5 mg PO QAM-WM [facility] Last Admin: 01/11/18 08:10 Dose: 0.5 mg Glucagon (Glucagon) 1 mg IM PRN PRN PRN Reason: Hypoglycemia Dextrose/Water (D5w) 1,000 mls @ 0 mls/hr IV .Q0M PRN PRN Reason: Hypoglycemia Sodium Chloride (Normal Saline 0.9%) 1,000 mls @ 50 mls/hr IV .Q20H [facility] Last Admin: 01/11/18 03:21 Dose: Not Given Cefepime HCl 1 gm/ Sodium (Chloride) 100 mls @ 200 mls/hr IVPB 1000,2200 [facility] Last Admin: 01/11/18 10:53 Dose: 100 mls Insulin Human Regular (Humulin R) 0 units SC .MILD SLIDING SCALE PRN PRN Reason: Mild Correctional Scale Last Admin: 01/10/18 13:00 Dose: 2 unit Insulin Human Regular (Humulin R) 0 units SC .BEDTIME SLIDING SC PRN PRN Reason: Bedtime Correctional Scale Magnesium Hydroxide (Milk Of Magnesium) 30 ml PO DAILYPRN PRN PRN Reason: Constipation Miscellaneous Medication (Pharmacy To Dose) 1 each IVPB PRN PRN PRN Reason: Pharmacy to dose Nifedipine (Procardia Xl) 30 mg PO QAM [facility] Last Admin: 01/11/18 08:11 Dose: 30 mg Nystatin (Mycostatin Powder) 0 gm TOP BID [facility] Last Admin: 01/11/18 08:13 Dose: 1 applic Polyethylene Glycol (Miralax) 17 gm PO DAILY [facility] Last Admin: 01/11/18 08:17 Dose: 17 gm Senna (Senokot) 2 tab PO HSPRN PRN PRN Reason: Constipation Senna/Docusate Sodium (Senokot S) 1 tab PO BID [facility] Last Admin: 01/11/18 08:12 Dose: 1 tab Sodium Chloride (Flush - Normal Saline) 10 ml IVF Q12HR [facility] Last Admin: 01/11/18 08:17 Dose: Not Given Sodium Chloride (Flush - Normal Saline) 10 ml IVF PRN PRN PRN Reason: Saline Flush Tamsulosin HCl (Flomax) 0.4 mg PO QPM [facility] Last Admin: 01/10/18 20:10 Dose: 0.4 mg Trospium (Trospium) 20 mg PO BID [facility] Last Admin: 01/11/18 08:10 Dose: 20 mg
[2018-01-11] MEDS: Tamsulosin HCl 0.4 MG CAP PO SCH (20:17)
[2018-01-11] MEDS: Finasteride 5 MG TAB PO SCH (20:17)
--- NOTE | 2018-01-12 00:35 | CON ---
DATE OF CONSULTATION: 01/11/2018 REASON FOR CONSULTATION: Urinary tract infection. HISTORY OF PRESENT ILLNESS: An 82-year-old with history of type 2 diabetes, hypertension, Parkinson's disease, bladder cancer managed many years ago and in remission, who has developed the urinary obstruction secondary to benign prostatic hypertrophy. Patient has been deemed not eligible for surgical resection and an attempt is being made to attempt to try a voiding trial after a few weeks of Flomax and testosterone receptor and inhibition. At this time, he presents after having had an accident during replacement of his Pena catheter, where the balloon was lodged in the urethra. Patient developed urinary obstruction for a brief period of time, which was identified in the doctor's office, the catheter was repositioned and with the relief of abdominal discomfort; however, patient developed gross hematuria the next day and was came to the emergency room and was admitted. Initial findings included blood pressure 120/60, pulse 81, respirations 20, temperature 98.1, O2 sats were 96. Patient was in some distress because of the trauma. His neck, lungs, and heart examination is normal. Abdomen soft with mild tenderness in the infraumbilical region. LABORATORY DATA: White cell count is 9.6, hemoglobin 13, platelets 367. Sodium 138, creatinine 1.42. Transaminases normal and alkaline phosphatase 175 with albumin 3.2, globulin 3.7. Urinalysis was greater than 50 wbcs and greater than 50 rbcs, protein of 300. Microbiology thus far, as urine culture with P. aeruginosa and Klebsiella pneumonia with a broad susceptibility profile. Two sets of blood cultures no growth. Consultation with Urology was obtained and recommendation was made for continuation of antimicrobial therapy and follow up with his urologist. Renal ultrasound was completed and showed hypoechoic area mid pole renal pelvis. CT was suggested because of the hematuria, history and possibility of a renal mass. Currently, Mr. Castillo is awake. He does not appear in acute distress. He has the typical features of Parkinson's disease. REVIEW OF SYSTEMS: Denies any headaches. No shortness of breath or chest pain , no abdominal pain. The genitourinary symptoms have improved. He has diffuse stiffness, which is chronic from Parkinson's disease and hypomotility. PAST MEDICAL HISTORY: Parkinson's disease, type 2 diabetes, hypertension, bladder cancer, and cancer in remission, BPH with urinary obstruction requiring Pena catheterization. PAST SURGICAL HISTORY: Includes appendectomy, tonsillectomy, adenoidectomy, hip surgery, gallbladder resection. ALLERGIES: LEVAQUIN. The reaction was not a true hypersensitivity reaction, but more like a muscle spasm in the calf region, which may have been related to something else. He has been able to take ciprofloxacin in the past without problems. MEDICATION LIST: At home, naproxen, Sinemet, finasteride, lisinopril, metformin , Procardia, pravastatin, ranitidine, Flomax. SOCIAL HISTORY: Lives at home with family. Never smoker. PHYSICAL EXAMINATION: VITAL SIGNS: T-max 98.1, blood pressure 150/74, pulse 81, respirations 18, O2 sat 94%. GENERAL: Appears no distress. SKIN: With areas of erythema in the scrotal and penile area, which have improved markedly since the initiation of antimicrobial therapy. No lymphadenopathy. HEENT: Ocular movements conjugate. Oral cavity with no remarkable findings. NECK: Supple. No jugular vein distention. LUNGS: With symmetric clear breath sounds. CARDIOVASCULAR: S1, S2, regular rate. No S3, S4. ABDOMEN: Soft and not distended or tender. No ascites. No bladder distention. EXTREMITIES: No joint inflammatory activity. Diffuse stiffness and some cogwheel rigidity. Pulses 1+ in dorsalis pedis. Plantar responses are indifferent. He is awake, oriented, follows commands. LABORATORY DATA: White cell count is now at 8.8, hemoglobin 12.7, platelets 319. Sodium 138, creatinine 1.42, calcium 8.3, glucose 115. Vancomycin trough 7.4. ASSESSMENT: Parkinson's disease, type 2 diabetes, prior transitional cell cancer of bladder, which is in remission, now BPH with obstruction requiring Pena catheterization not a candidate for TURP. An attempt has been made with conservative management to see if there is a possibility of voiding trial down the road after a few weeks of Flomax and finasteride. Patient now is admitted with misplacement of the Pena catheter with transient obstruction and urinary infection. The organism is a broadly susceptible to various antimicrobials, although he does have this history of calf spasms after administration of levofloxacin. He has been able to take Cipro in the past and I would recommend discharge planning on oral ciprofloxacin the usual dose, his GFR is up to almost 50, should be able to take 500 twice daily for about 10-14 days. MTDD
[2018-01-12] MEDS: Famotidine 20 MG TAB PO SCH (08:16)
[2018-01-12] MEDS: Glimepiride 1 MG TAB PO SCH (08:16)
[2018-01-12] MEDS: TROSPIUM 20 MG TABLET PO SCH (08:17)
[2018-01-12] MEDS: Fluconazole 100 MG TAB PO SCH (08:17)
[2018-01-12] MEDS: Carbidopa/Levodopa 25-250 mg Tablet PO SCH (08:17)
[2018-01-12] MEDS: NIFEdipine XL 30 MG TAB PO SCH (08:17)
[2018-01-12] MEDS: Senokot S 8.6-50 MG TAB PO SCH (08:17)
[2018-01-12] MEDS: Aquaphor 30 GM 99 GM, Cholestyramine/Aspartame 4 GM TOP SCH (08:18)
[2018-01-12] MEDS: Nystatin Powder 15 GM BOT TOP SCH (08:18)
[2018-01-12] MEDS: Polyethylene Glycol 3350 17 GM Packet PO SCH (08:18)
[2018-01-12 08:21] VITALS: BP 116/65
[2018-01-12 08:22] VITALS: TEMP 97.6
[2018-01-12] MEDS: Cefepime 1 GM in Sodium Chloride 0.9% 100 ML IVPB SCH (10:38)
[2018-01-12] MEDS ORDERED: Ciprofloxacin 500 MG TAB PO SCH ×2 (11:00→20:00)
[2018-01-12] MEDS: Doxycycline 100 MG CAP PO SCH (12:03)
[2018-01-12] MEDS: Insulin Regular 300 UNITS/3 ML VIAL SC PRN (12:07)
--- NOTE | 2018-01-12 18:30 | DIS ---
DATE OF ADMISSION: 01/09/2018 DATE OF DISCHARGE: 01/12/2018 DISCHARGE DISPOSITION: To detention facility (swing bed at [place]). ALLERGIES: The patient is allergic to LEVAQUIN, however, can tolerate ciprofloxacin. DISCHARGE MEDICATIONS: 1. Ciprofloxacin 500 mg twice a day for the next 10 days. 2. Doxycycline 100 mg twice a day for the next 5 days. 3. Glipizide 2.5 mg daily. 4. Nystatin powder in the groin twice a day. 5. Trospium 20 mg twice a day. 6. Sinemet 1 tablet 3 times a day. 7. Finasteride 5 mg daily. 8. Lisinopril 2.5 mg daily. 9. Metformin 500 mg at night and 250 mg daily. 10. Procardia XL 30 mg daily. 11. Pravastatin 40 mg daily. 12. Ranitidine 150 mg daily. 13. Flomax 0.4 mg q.p.m. The patient was seen and examined on the day of discharge. Denies any new complaints. No chest pain , shortness of breath, palpitations reported. FOLLOWUP: Follow up with primary care physician, Dr. Tanya Louis in 1 week. BRIEF HOSPITAL COURSE: The patient is an 82-year-old male with chronic indwelling Pena catheter sec ondary to benign prostatic hypertrophy, presented to the hospital with gross hematuria and lower abdo stephan discomfort. Please refer to the history and physical for further details. The patient was admitted to the hospital with a diagnosis of catheter-associated urinary tract infect ion with gross hematuria and cellulitis of the perineal area. He was started on ceftriaxone. His ur ine culture showed Pseudomonas and Klebsiella. Antibiotics were changed to cefepime. The patient wa s evaluated by Infectious Disease, Dr. Ramires, who recommended giving him ciprofloxacin for the next 1 0 days. The patient was also seen by Urology due to gross hematuria that eventually improved with co nservative measures. He will be discharged to detention facility. He appears stable for disch arge. Plan of care was discussed with the patient and the family in detail. They stated understanding. FINAL DIAGNOSES: 1. Catheter-associated urinary tract infection with gross hematuria and cellulitis of the perineal a brett with fungal dermatitis. 2. Acute blood loss anemia. 3. Acute kidney injury on chronic kidney disease stage 3. 4. Diabetes mellitus type 2. 5. Hypertension. 6. Obesity with a BMI of 30.6. 7. Dehydration. 8. Benign prostatic hypertrophy. 9. Hyperlipidemia. 10. Gastroesophageal reflux disease. 11. Degenerative joint disease.
== END 2018-01-12 14:40 | DRG 699 ==
LOC: ERS 21:12 → T4-B 23:20 → OBSVTOIN 01-09 11:56
PROVIDERS: ADMIT Hospitalist; ATTEND Hospitalist
DX: T83.511A Infection and inflammatory reaction due to indwelling urethral catheter, initial encounter (principal); D62 Acute posthemorrhagic anemia; L03.315 Cellulitis of perineum; N17.9 Acute kidney failure, unspecified; N39.0 Urinary tract infection, site not specified; N18.3 Chronic kidney disease, stage 3 (moderate); E86.0 Dehydration; B36.9 Superficial mycosis, unspecified; G20 Parkinson's disease; N40.0 Benign prostatic hyperplasia without lower urinary tract symptoms; R33.9 Retention of urine, unspecified; E78.5 Hyperlipidemia, unspecified; Z85.51 Personal history of malignant neoplasm of bladder; M19.90 Unspecified osteoarthritis, unspecified site; B96.1 Klebsiella pneumoniae [K. pneumoniae] as the cause of diseases classified elsewhere; B96.5 Pseudomonas (aeruginosa) (mallei) (pseudomallei) as the cause of diseases classified elsewhere; R31.0 Gross hematuria; I12.9 Hypertensive chronic kidney disease with stage 1 through stage 4 chronic kidney disease, or unspecified chronic kidney disease; Y84.6 Urinary catheterization as the cause of abnormal reaction of the patient, or of later complication, without mention of misadventure at the time of the procedure; E11.22 Type 2 diabetes mellitus with diabetic chronic kidney disease; Z79.1 Long term (current) use of non-steroidal anti-inflammatories (NSAID); Z79.899 Other long term (current) drug therapy; Z79.84 Long term (current) use of oral hypoglycemic drugs; E66.9 Obesity, unspecified; Z68.30 Body mass index [BMI] 30.0-30.9, adult
CPT/HCPCS: 36415; 36416; 76770; 80048; 80053; 80202; 81003; 81015; 83605; 85025; 86140; 87040; 87077; 87086; 87186; 96365; 96372; A4216; G8978-GP-CM; G8979-GP-CL; G8987-GO-CL; G8988-GO-CJ; J0692; J0696; J1815; J2001; J3370; J7050

== ENCOUNTER 2018-07-10 19:56 | Inpatient (IN) | payer MEDICARE ==
[2018-07-10 20:33] LABS: Hemoglobin 12.9 g/dL (14.0-18.0); Mean Corpuscular HGB CONC 32.2 g/dL (32.0-36.0); Mean Corpuscular Hemoglobin 28.3 pg (27.0-31.0); Mean Corpuscular Volume 87.9 fL (78.0-98.0); Mean Platelet Volume 6.8 fL (7.4-10.4); Platelet Count 457 thou/uL (130-400); RBC Distribution Width 14.3 % (11.5-14.5); Red Blood Cell (RBC) Count 4.56 mill/uL (4.70-6.10)
[2018-07-10 20:39] LABS: INR-International Normal Ratio 1.1; Prothrombin Time 14.8 SEC (12.0-14.7)
[2018-07-10 20:54] LABS: ALT (SGPT) Less than 7 U/L (8-55); AST (SGOT) 16 U/L (5-34); Albumin 3.5 g/dL (3.4-4.8); Alkaline Phosphatase 108 U/L (40-150); Anion Gap 14 mmol/L (10-20); BUN (Urea Nitrogen) 22 mg/dL (8.4-25.7); Bilirubin, Total 0.3 mg/dL (0.2-1.2); Calc. Creatinine Clearance 0 mL/min (70-130); Carbon Dioxide 24 mmol/L (23-31); Chloride 98 mmol/L (98-107); Estimated GFR-MDRD 36; Globulin 4.5 g/dL (2.4-3.5); Glucose 118 mg/dL (83-110); Potassium 5.1 mmol/L (3.5-5.1); Sodium 131 mmol/L (136-145)
[2018-07-10 21:19] LABS: Band 1 % (5-11); Eosinophils 5 % (0-10); Lymphocytes 15 % (21-51); MDiff Complete? YES; Monocytes 12 % (0-10); Neutrophil 67 % (42-75)
[2018-07-10 23:44] VITALS: BMI 30.1
[2018-07-11 00:14] LABS: Troponin I Less than 0.010 ng/mL (< 0.028)
[2018-07-11] MEDS ORDERED: Ondansetron PF 4 MG/2 ML Vial IVP PRN (00:34)
[2018-07-11] MEDS ORDERED: Acetaminophen 325 MG TAB PO PRN (00:34)
--- NOTE | 2018-07-11 01:05 | PDOC.EVN ---
Event Note - Event Note Event Note: H&P #[id number]
[2018-07-11 02:31] LABS: #Basophils 0.1 thou/uL (0.0-0.2); #Eosinphils 1.3 thou/uL (0.0-0.7); #Lymphocytes 1.3 thou/uL (1.20-3.40); #Monocytes 0.9 thou/uL (0.11-0.59); #Neutrophils 5.7 thou/uL (1.40-6.50); %Basophils 0.5 % (0.0-1.0); %Eosinophils 13.6 % (0.0-10.0); %Lymphocytes 13.8 % (21.0-51.0); %Monocytes 10.1 % (0.0-10.0); %Neutrophils 61.9 % (42.0-75.0); Hemoglobin 12.2 g/dL (14.0-18.0); Mean Corpuscular HGB CONC 31.9 g/dL (32.0-36.0); Mean Corpuscular Volume 87.7 fL (78.0-98.0); Mean Platelet Volume 6.2 fL (7.4-10.4); Platelet Count 417 thou/uL (130-400); RBC Distribution Width 14.1 % (11.5-14.5); Red Blood Cell (RBC) Count 4.35 mill/uL (4.70-6.10); White Blood Cell (WBC) Count 9.2 thou/uL (4.8-10.8)
[2018-07-11 02:54] LABS: Troponin I Less than 0.010 ng/mL (< 0.028)
[2018-07-11 02:57] LABS: Anion Gap 14 mmol/L (10-20); BUN (Urea Nitrogen) 22 mg/dL (8.4-25.7); Calc. Creatinine Clearance 46 mL/min (70-130); Calcium 8.7 mg/dL (7.8-10.44); Carbon Dioxide 24 mmol/L (23-31); Chloride 99 mmol/L (98-107); Estimated GFR-MDRD 39; Glucose 114 mg/dL (83-110); Potassium 4.6 mmol/L (3.5-5.1); Sodium 132 mmol/L (136-145)
--- NOTE | 2018-07-11 05:11 | HP ---
ADMITTING DIAGNOSIS: Sent in by his primary care provider for evaluation of shortness of breath. HISTORY OF PRESENT ILLNESS: This is an 83-year-old male, who is presenting to the hospital with shortness of breath on ambulation. Demands his shortness of breath is worsening over the last 2 to 3 days. The patient of note had an echocardiogram performed, which shows cardiac tamponade with right atrial collapse, no right ventricular collapse. Hemodynamically, the patient appears stable as he is lying in bed on 2 L nasal cannula with O2 saturations of 100%. Denying any complaints. The patient otherwise denies any other associated symptoms or complaints. Does admit to urinary retention, having a Pena catheter in place as well as noted that he has had some worsening swelling in the last 2 to 3 months of his lower extremities. The patient otherwise has no other associated complaints. No alleviating or aggravating factors. The patient is seen and examined in the emergency room. No family at bedside. All questions answered. REVIEW OF SYSTEMS: All systems reviewed. Pertinent positive in HPI, otherwise negative. HOME MEDICATIONS: Please see MAR. PAST MEDICAL HISTORY: Parkinson disease, hypertension, diabetes, history of malignancy with bladder cancer, osteoarthritis, debilitation, hyperlipidemia as well as lower extremity edema. FAMILY HISTORY: The patient states that he is not aware of any. SOCIAL HISTORY: Nondrinker, nonsmoker. PHYSICAL EXAMINATION: VITAL SIGNS: Blood pressure is 136/66, pulse is 74, respirations of 20, temperature of 97.5, and O2 saturation 100% on 2 L nasal cannula. GENERAL: The patient is lying in bed comfortably with 2 L nasal cannula. No shortness of breath. HEENT: Normocephalic, atraumatic. Extraocular muscles are intact. Oral cavity, moist and pink. NECK: Supple, mobile, nontender. Thyroid appreciated. PULMONARY: Mild wheezing at bilateral lung bases. No increase in AP diameter. No respiratory distress. CARDIOVASCULAR: Sinus tachycardia. S1, S2. 2/6 systolic ejection murmur appreciated. ABDOMEN: Positive bowel sounds. Soft, nontender, nondistended. No rebound or guarding noted. EXTREMITIES: 2+ peripheral pulses noted. 1+ pitting edema in bilateral lower extremities noted as well as some discoloration and hypertrophic skin on bilateral shins. NEUROLOGICAL: Alert and oriented x3. Little slow in speech, however, is with it. No loss of sensory function. Antalgic gait. LABORATORY DATA: CBCs within normal limits. PT and INR within normal limits. Basic metabolic panel shows a sodium of 131 and creatinine 1.79, otherwise normal. Echocardiogram was performed, which shows EF of 60% to 65%. Moderately dilated left atrium, MR as well as moderate circumferential pericardial effusion with early signs of physiologic tamponade. Clear evidence of right atrial collapse consistent with tamponade physiology. Clear evidence of diastolic collapse of the right ventricle consistent with tamponade physiology. No findings of left ventricular collapse noted. ASSESSMENT: 1. Cardiac tamponade. 2. Hyperlipidemia. 3. Hypertension. 4. Edema. 5. Congestive heart failure. 6. Diabetes mellitus. 7. Deconditioning. 8. Parkinson's. 9. Shortness of breath. PLAN: At this point in time, we will admit the patient to [facility]. Consult to Cardiothoracic Surgery. We will place the patient n.p.o. past midnight. Provide oxygen support. Continue home medications as appropriate. We will hold off on any blood thinners at this point in time as the patient is likely going to have a pericardial window and/or a pericardiocentesis. The patient to be admitted to [facility]. Wishes to remain a full code. No family at bedside. Case and plan discussed with the patient at length. He understood and agreed to this plan. Job ID: [id number]
[2018-07-11] MEDS: Famotidine 20 MG TAB PO SCH ×2 (08:52→20:57)
[2018-07-11] MEDS: Carbidopa/Levodopa 25-250 mg Tablet PO SCH ×4 (08:52→20:59)
[2018-07-11] MEDS ORDERED: PROPOFOL 200 MG/20 ML VIAL ONE (08:58)
[2018-07-11] MEDS ORDERED: Glycopyrrolate 0.2 MG/ML 5 ML SYRINGE ONE (08:58)
[2018-07-11] MEDS ORDERED: Lidocaine 1% PF 5 ML VIAL ONE (08:58)
[2018-07-11] MEDS ORDERED: Rocuronium Bromide 10 MG/ML (10ML VIAL) ONE (08:58)
[2018-07-11] MEDS ORDERED: NIFEdipine XL 30 MG TAB PO SCH (09:00)
[2018-07-11] MEDS ORDERED: Levothyroxine Sodium 50 MCG TAB PO SCH (09:00)
--- NOTE | 2018-07-11 10:20 | CON ---
DATE OF CONSULTATION: HISTORY OF PRESENT ILLNESS: Mr. Castillo is an 83-year-old gentleman who was admitted to [facility] with shortness of breath and fatigue. He had an echocardiogram performed, which shows pericardial effusion with some right atrial collapse and right ventricular compression. This was consistent with early tamponade. Ejection fraction is 60-65 percent on echocardiogram. He has no history of renal failure. Electrolytes have been well managed. He has no congestive failure history. PAST MEDICAL HISTORY: 1. Parkinson's. 2. Hypertension. 3. Diabetes. 4. Bladder cancer. 5. Osteoarthritis. 6. Hyperlipidemia. PAST SURGICAL HISTORY: Currently unknown. CURRENT MEDICATIONS: Noted in the MAR. ALLERGIES: LEVAQUIN. PHYSICAL EXAMINATION: VITAL SIGNS: Height is 6 feet, weight is 222 pounds, temperature is 99.1, pulse is 110, blood pressure 101/65. HEENT: Sclerae nonicteric. NECK: Supple without adenopathy. CHEST: Clear bilaterally. HEART: Rhythm is regular. ABDOMEN: Soft and nontender. EXTREMITIES: 1 to 2+ edema. ASSESSMENT/PLAN: Pericardial effusion with early tamponade on echocardiogram. I am awaiting his 's arrival to discuss consent due to his Parkinson's and his hearing issues. Once consent is obtained, we will plan for pericardial window as soon as operating room is available. Job ID: [id number]
[2018-07-11] MEDS ORDERED: CEFAZOLIN 2 GM in Premix Bag 1 BAG IVPB SCH (11:00)
[2018-07-11] MEDS ORDERED: Norepinephrine 8 MG/0.9% NS 0 ML ONE (11:02)
[2018-07-11] MEDS ORDERED: Fentanyl 100 MCG/2 ML VIAL ONE ×3 (11:02→13:18)
[2018-07-11] MEDS ORDERED: Bupivacaine HCl 0.5%/Epinephrine 1:200,000/PF 30 ml Vial ONE (11:55)
[2018-07-11] MEDS ORDERED: Promethazine HCl 25 MG/ML VIAL SLOW IVP PRN (12:57)
[2018-07-11] MEDS ORDERED: Ondansetron HCl/PF 4 MG/2 ML Vial IVP PRN (12:57)
[2018-07-11] MEDS ORDERED: Promethazine HCl 25 MG/ML VIAL IM PRN (12:57)
--- NOTE | 2018-07-11 13:06 | CON ---
DATE OF CONSULTATION: 07/11/2018 SERVICE: Pulmonary Medicine. REASON FOR CONSULTATION: [facility] patient. HISTORY OF PRESENT ILLNESS: The patient is an 83-year-old white male with past medical history significant for Parkinson disease. He was in his usual state of health until 4 or 5 days ago. Over this period of time, he had progressive shortness of breath and orthopnea. He presented to an outpatient facility. He ended up getting an echocardiogram. This showed a large pleural effusion with tamponade physiology. As such, he was transitioned to the emergency department. Overnight, he was diuresed gently. He tolerated this quite well. He is going to undergo pericardial window as soon as consent can be arranged. The patient denies any current fevers, chills, nausea, vomiting, cough, or sputum production. Otherwise, he is in his usual state of health and indicates that his breathing is quite comfortable presently. PAST MEDICAL HISTORY: 1. Parkinson disease. 2. Hypertension. 3. Dyslipidemia. 4. Type 2 diabetes mellitus. 5. Bladder cancer. 6. Osteoarthritis. PAST SURGICAL HISTORY: 1. Appendectomy. 2. Bladder cancer surgery. 3. Tonsillectomy. 4. Adenoidectomy. 5. Hip surgery. 6. Cholecystectomy. 7. Excision of soft tissue mass. ALLERGIES: LEVAQUIN. MEDICATIONS: List of his inpatient medications was reviewed. No specific updates were made at this time. FAMILY HISTORY: Noncontributory. SOCIAL HISTORY: He currently lives in a nursing facility. He has no exposure to chemicals, dust, asbestos, or tuberculosis presently. REVIEW OF SYSTEMS: General, head, ears, eyes, nose, throat, cardiovascular, respiratory, GI, , musculoskeletal, neurologic, and skin are negative except as mentioned in the HPI. PHYSICAL EXAMINATION: VITAL SIGNS: Afebrile, pulse 68, blood pressure 123/67, respirations 14, and saturation 95% on 2 L nasal cannula. GENERAL: The patient is awake and alert, in no apparent distress. LUNGS: Excellent air entry. Minimal dependent crackles are noted. No prolonged expiratory phase or wheezing is appreciated. HEART: Normal rate and regular. ABDOMEN: Soft, nontender, and nondistended. Bowel sounds are positive. MUSCULOSKELETAL: No cyanosis or clubbing. There is 1 to 2+ pitting in the bilateral lower extremities. Wrinkles are present over the feet suggesting significant diuresis recently. : Pena catheter in place. NEUROLOGIC: He demonstrates ptosis, fasciculations in the tongue. Outside of this, it is nonfocal. LABORATORY DATA: WBC 9.2, hemoglobin 12.2, and platelets 417,000. INR 1.1. Basic metabolic profile and liver function studies are essentially unremarkable except for creatinine of 1.7, which appears to be close to his baseline of 1.3. Liver function studies and troponin x3 are unremarkable. His TSH is elevated at 5.1. IMAGING STUDIES: I am told the echocardiogram has findings consistent with tamponade physiology. ASSESSMENT: 1. Acute hypoxic respiratory failure. 2. Acute on chronic diastolic heart failure. 3. Cardiac tamponade, early. 4. Parkinson disease. DISCUSSION AND PLAN: The TSH is slightly elevated. Replacement could be considered. Because of his ptosis and fasciculations, I will check acetylcholine receptor antibodies. Pulmonary/Critical Care will continue to follow in this location. Once the wound is in place, he will likely be stable for transition to the floor, but need for stay here until he has definitive drainage of the space. 70 minutes have been devoted to this patient in various activities. I personally reviewed all imaging studies and laboratory data noted within this document. For fifty percent of this time, I was interacting with the patient at the bedside or coordinating care with the care team. For the remainder of the time I was immediately available to the patient in the hospital unit. Job ID: [id number] MTDD
--- NOTE | 2018-07-11 13:11 | OP ---
DATE OF PROCEDURE: 07/11/2018 PREOPERATIVE DIAGNOSIS: Pericardial effusion with early tamponade. POSTOPERATIVE DIAGNOSIS: Pericardial effusion with early tamponade. PROCEDURE PERFORMED: Pericardial window. FINDINGS: 500 mL of bloody pericardial fluid. The pericardium itself was thickened. SPECIMENS: 1. Fluid for cytology and chemistry. 2. Pericardium for routine pathologic exam. DRAINS: A 19-Wolof James. DESCRIPTION OF PROCEDURE: After consent was obtained, the patient was brought to operating room, placed in a supine position on the operating table. Appropriate lines and monitors were placed, and general anesthesia was induced. Chest was prepped and draped in usual sterile fashion. A skin incision was made over the xiphoid. The xiphoid was resected. Dissection down to the pericardium was obtained with electrocautery. Pericardium was sharply incised. Fluid was evacuated. A small rim of pericardium was sent for pathologic exam. A 19-Wolof James drain was placed, brought through the skin and secured with a silk suture. The wounds were then injected with 0.5% Marcaine with epinephrine. Wounds were closed in layers and Dermabond applied to the skin. The patient was awakened, extubated and transferred to recovery room in stable condition. Needle, sponge, and instrument counts were all reported as correct at the end of the procedure. Job ID: [id number]
--- NOTE | 2018-07-11 13:11 | RAD ---
AP CHEST: History: Posterior pericardial window. Date: 07-11-18 Comparison: 07-06-18 FINDINGS: AP chest demonstrates blunting of the left costophrenic angle compatible with a left sided pleural ef fusion. There is loss of the left lung hemidiaphragm airspace compatible again with a left sided pleu ral effusion. There is calcification of the aorta seen. Pulmonary vascular congestion is seen. IMPRESSION: Opacification of the left lung base compatible with possible left sided effusion. There may be some c omponent of left lower lobe pneumonia as well. POS: [facility]
[2018-07-11 14:15] LABS: Fluid, Protein 5.5 g/dL (Not Available)
[2018-07-11] MEDS ORDERED: Fentanyl 100 MCG/2 ML VIAL SLOW IVP PRN (14:18)
[2018-07-11] MEDS ORDERED: Acetaminophen/Codeine 30-300mg Tablet PO PRN (14:38)
[2018-07-11] MEDS ORDERED: Dextrose 5% in Water 1,000 ML IV PRN (15:36)
[2018-07-11] MEDS ORDERED: Dextrose 50% Abboject 50 ML SYRINGE SLOW IVP PRN (15:36)
[2018-07-11] MEDS ORDERED: Insulin Regular 300 UNITS/3 ML VIAL SC PRN ×2 (15:36)
--- NOTE | 2018-07-11 16:09 | PDOC.PN ---
- Subjective Encounter Start Date: 07/11/18 Encounter Start Time: 15:30 Patient seen and examined for SOB due to Pericardial effusion. s/p Pericardial window. No CP. Somnolent after the procedure. No new complaints. No overnight events - Objective MAR Reviewed: Yes Vital Signs & Weight: Vital Signs (12 hours) Temp Pulse Resp BP Pulse Ox 07/11/18 15:25 97.8 F 07/11/18 11:23 98.5 F 07/11/18 08:49 71 125/73 07/11/18 08:00 111 H 15 100 07/11/18 07:06 99.1 F 07/11/18 04:19 97.7 F Weight Admit Weight 222 lb 3.2 oz Weight 222 lb 3.2 oz Most Recent Monitor Data Heart Rate from ECG 80 NIBP 104/62 NIBP BP-Mean 76 Respiration from ECG 12 SpO2 96 I&O: 07/10/18 07/11/18 07/12/18 06:59 06:59 06:59 Intake Total 10 Output Total 750 Balance -740 Result Diagrams: 07/11/18 02:23 07/11/18 02:23 EKG Reviewed by me: Yes (Tele SR) Phys Exam - Physical Examination Constitutional: NAD Respiratory: no wheezing, no rhonchi few rales at bases Cardiovascular: RRR, no rub no heaves/pulsations Gastrointestinal: soft, non-tender, no distention, positive bowel sounds Musculoskeletal: edema present Neurological: non-focal, moves all 4 limbs Psychiatric: normal affect, A&O x 3 Deviation from normal: Somnolent Dx/Plan - Plan plan discussed w/ family, PT/OT, DVT proph w/SCDs 1. SOB due to Pericardial effusion with early tamponade s/p Pericardial Window 2. HTN 3. HLD 4. DM2 5. Parkinson disease 6. Obesity BMI 30.1 7. Chronic indwelling jamison catheter with recent Catheter associated UTI at [facility] 8. Physical deconditioning PLAN: Home meds verified. Sinemet QID DC Procardia XL/Finasteride (Patient does not take this meds) SCDs for DVT prophylaxis PT/OT eval Add sliding scale Resume Amaryl at low dose Cont other home meds as below Review of Systems - Review of Systems Cardiovascular: edema. negative: chest pain, palpitations, orthopnea, paroxysmal nocturnal dyspnea, light headedness, other Gastrointestinal: negative: Nausea, Vomiting, Abdominal Pain, Diarrhea, Constipation, Melena, Hematochezia, Other - Medications/Allergies Allergies/Adverse Reactions: Allergies Allergy/AdvReac Type Severity Reaction Status Date / Time [facility] Allergy Intermediate Verified 01/09/18 01:44 Medications: Current Medications Acetaminophen (Tylenol) 650 mg PO Q4H PRN PRN Reason: Headache/Fever/Mild Pain (1-3) Carbidopa/Levodopa (Sinemet 25-250) 1 tab PO QID [facility] Cefazolin Sodium (Cabg-Ancef) 2 gm SLOW IVP ONE [facility] Stop: 07/13/18 14:19 Clotrimazole (Lotrimin 1% Cream) 0 gm TOP BID [facility] Clotrimazole (Lotrimin 1% Cream) 0 gm TOP BID [facility] Dextrose/Water (Dextrose 50%) 25 gm SLOW IVP PRN PRN PRN Reason: Hypoglycemia Famotidine (Pepcid) 20 mg PO BID [facility] Last Admin: 07/11/18 08:52 Dose: 20 mg Fentanyl (Sublimaze) 25 mcg SLOW IVP Q2H PRN PRN Reason: Pain Last Admin: 07/11/18 15:08 Dose: 25 mcg Glimepiride (Amaryl) 0.5 mg PO QAM[facility] Glucagon (Glucagon) 1 mg IM PRN PRN PRN Reason: Hypoglycemia Dextrose/Water (D5w) 1,000 mls @ 0 mls/hr IV .Q0M PRN PRN Reason: Hypoglycemia Insulin Human Regular (Humulin R) 0 units SC .MILD SLIDING SCALE PRN PRN Reason: Mild Correctional Scale Insulin Human Regular (Humulin R) 0 units SC .BEDTIME SLIDING SC PRN PRN Reason: Bedtime Correctional Scale Levothyroxine Sodium (Synthroid) 50 mcg PO DAILY [facility] Last Admin: 07/11/18 08:52 Dose: 50 mcg Metoprolol Succinate (Toprol Xl) 25 mg PO DAILY [facility] Last Admin: 07/11/18 08:51 Dose: 25 mg Ondansetron HCl (Zofran) 4 mg IVP Q6H PRN PRN Reason: Nausea/Vomiting Polyethylene Glycol (Miralax) 17 gm PO DAILY [facility] Senna/Docusate Sodium (Senokot S) 1 tab PO BID [facility] Tramadol HCl (Ultram) 50 mg PO Q6H PRN PRN Reason: Pain
[2018-07-11 16:21] LABS: Ref Lab Test Ordered NA FLUID; Reference Lab Name LABCORP
[2018-07-11] MEDS: Senokot S 8.6-50 MG TAB PO SCH (20:57)
[2018-07-11] MEDS: traMADol HCl 50 MG TAB PO PRN (20:57)
[2018-07-11] MEDS: Clotrimazole 1 % Cream 30 GM TUBE TOP SCH (20:58)
[2018-07-11] MEDS ORDERED: Finasteride 5 MG TAB PO SCH (21:00)
[2018-07-11] MEDS: Clotrimazole 1% Cream 15 GM TUBE TOP SCH (21:03)
[2018-07-12 05:33] LABS: Hemoglobin 12.4 g/dL (14.0-18.0)
[2018-07-12] MEDS: traMADol HCl 50 MG TAB PO PRN (05:51)
[2018-07-12] MEDS: Levothyroxine Sodium 50 MCG TAB PO SCH (05:52)
[2018-07-12 06:37] LABS: Anion Gap 12 mmol/L (10-20); BUN (Urea Nitrogen) 18 mg/dL (8.4-25.7); Calc. Creatinine Clearance 59 mL/min (70-130); Calcium 8.2 mg/dL (7.8-10.44); Carbon Dioxide 25 mmol/L (23-31); Chloride 100 mmol/L (98-107); Estimated GFR-MDRD 52; Glucose 76 mg/dL (83-110); Magnesium 1.9 mg/dL (1.6-2.6); Potassium 4.4 mmol/L (3.5-5.1); Sodium 133 mmol/L (136-145)
[2018-07-12 07:19] LABS: Phosphorus 3.5 mg/dL (2.3-4.7)
[2018-07-12] MEDS: Senokot S 8.6-50 MG TAB PO SCH ×2 (09:13→21:35)
[2018-07-12] MEDS: Glimepiride 1 MG TAB PO SCH (09:13)
[2018-07-12] MEDS: Polyethylene Glycol 3350 17 GM Packet PO SCH (09:13)
[2018-07-12] MEDS: Famotidine 20 MG TAB PO SCH ×2 (09:14→21:35)
[2018-07-12] MEDS: Clotrimazole 1 % Cream 30 GM TUBE TOP SCH ×2 (09:14→21:35)
[2018-07-12] MEDS: Clotrimazole 1% Cream 15 GM TUBE TOP SCH ×2 (09:14→21:35)
[2018-07-12] MEDS: Carbidopa/Levodopa 25-250 mg Tablet PO SCH ×4 (09:17→21:35)
--- NOTE | 2018-07-12 15:58 | PRG ---
DATE OF SERVICE: 07/12/2018 SERVICE: Pulmonary Medicine. INTERVAL HISTORY: The patient is doing really well after a pericardial window. He does not have any shortness of breath or chest discomfort. He is diuresing beautifully. Otherwise, he has no specific complaints. He is having a little bit of chest discomfort whenever he coughs deeply. PHYSICAL EXAMINATION: VITAL SIGNS: Afebrile currently with a T-max of 99.4, pulse 72, blood pressure 126/67, respirations 28, and saturation 98% on room air. GENERAL: The patient is awake and alert, in no apparent distress. LUNGS: Decent air entry. No prolonged expiratory phase is present. There is minimal dependent crackles. No wheezing. HEART: Normal rate and regular. ABDOMEN: Soft, nontender, and nondistended. Bowel sounds are positive. MUSCULOSKELETAL: No cyanosis or clubbing. There is 1+ pitting in the bilateral lower extremities, which is dramatically improved. : No Pena. NEUROLOGIC: Grossly nonfocal. LABORATORY DATA: Hemoglobin 12.4 and stable. Creatinine 1.32 and improving. Basic metabolic profile, magnesium and phosphorus are otherwise unremarkable. Pericardial fluid has an LDH of 800, protein 5.5, and glucose of 73, consistent with an exudative effusion. Fluid sodium is 134. ASSESSMENT: 1. Acute hypoxic respiratory failure, resolved. 2. Acute on chronic diastolic heart failure. 3. Cardiac tamponade, status post pericardial window, postop day 1. 4. Parkinson disease. DISCUSSION AND PLAN: The patient is stable for transition out of the IMCU to the telemetry unit. When he arrives on the floor, he will have no further requirements for inpatient Pulmonary or Critical Care opinion, and I will sign off. Please call with additional questions or concerns. Job ID: [id number]
--- NOTE | 2018-07-12 19:16 | PDOC.PN ---
- Subjective Encounter Start Date: 07/12/18 Encounter Start Time: 16:00 Patient seen and examined for CHF/Pericardial effusion. SOB improving. No new complaints. No overnight events - Objective MAR Reviewed: Yes Vital Signs & Weight: Vital Signs (12 hours) Temp Pulse Pulse BP BP Pulse Ox Pulse Ox 07/12/18 15:29 99.4 F 07/12/18 14:15 72 77 126/67 146/55 H 98 07/12/18 11:06 98.2 F 07/12/18 09:20 71 74 124/63 134/62 97 07/12/18 08:00 98 07/12/18 07:23 99.0 F Pulse Ox 07/12/18 15:29 07/12/18 14:15 07/12/18 11:06 07/12/18 09:20 99 07/12/18 08:00 07/12/18 07:23 Weight Admit Weight 222 lb 3.2 oz Weight 222 lb 3.2 oz Most Recent Monitor Data Heart Rate from ECG 71 NIBP 124/68 NIBP BP-Mean 86 Respiration from ECG 19 SpO2 97 I&O: 07/11/18 07/12/18 07/13/18 06:59 06:59 06:59 Intake Total 10 1860 480 Output Total 750 1515 210 Balance -740 345 270 Result Diagrams: 07/12/18 04:37 07/12/18 04:37 Additional Labs: Accuchecks 07/12/18 07/12/18 07/12/18 16:35 10:41 05:56 POC Glucose 154 H 135 H 77 07/11/18 21:14 POC Glucose 98 EKG Reviewed by me: Yes (Tele SR) Phys Exam - Physical Examination Constitutional: NAD Respiratory: no wheezing, no rhonchi few rales at bases Cardiovascular: RRR, no rub Gastrointestinal: soft, non-tender, positive bowel sounds Musculoskeletal: edema present (improving) Neurological: non-focal, moves all 4 limbs Dx/Plan - Plan DVT proph w/SCDs 1. SOB due to Pericardial effusion with early tamponade s/p Pericardial Window 2. Acute on chronic diastolic HF - ACC stage C 3. HLD 4. HTN 5. DM2 6. Parkinson disease 7. Chronic indwelling jamison catheter with recent Catheter associated UTI at [facility] 8. Physical deconditioning/Obesity BMI 30.1 PLAN: Transfer to Tele PT/OT Cont sliding scale with Amaryl Cont current dose of Sinemet and other home meds as below DC to [facility] bed when stable Review of Systems - Review of Systems Cardiovascular: negative: chest pain, palpitations, orthopnea, paroxysmal nocturnal dyspnea, edema, light headedness, other Gastrointestinal: negative: Nausea, Vomiting, Abdominal Pain, Diarrhea, Constipation, Melena, Hematochezia, Other - Medications/Allergies Allergies/Adverse Reactions: Allergies Allergy/AdvReac Type Severity Reaction Status Date / Time levofloxacin [From [facility]] Allergy Intermediate Verified 01/09/18 01:44 Medications: Current Medications Acetaminophen (Tylenol) 650 mg PO Q4H PRN PRN Reason: Headache/Fever/Mild Pain (1-3) Carbidopa/Levodopa (Sinemet 25-250) 1 tab PO QID [facility] Last Admin: 07/12/18 17:34 Dose: 1 tab Cefazolin Sodium (Cabg-Ancef) 2 gm SLOW IVP ONE [facility] Stop: 07/13/18 14:19 Clotrimazole (Lotrimin 1% Cream) 0 gm TOP BID [facility] Last Admin: 07/12/18 09:14 Dose: Not Given Clotrimazole (Lotrimin 1% Cream) 0 gm TOP BID [facility] Last Admin: 07/12/18 09:14 Dose: 1 applic Dextrose/Water (Dextrose 50%) 25 gm SLOW IVP PRN PRN PRN Reason: Hypoglycemia Famotidine (Pepcid) 20 mg PO BID [facility] Last Admin: 07/12/18 09:14 Dose: 20 mg Fentanyl (Sublimaze) 25 mcg SLOW IVP Q2H PRN PRN Reason: Pain Last Admin: 07/11/18 15:08 Dose: 25 mcg Glimepiride (Amaryl) 0.5 mg PO QAM-[facility] Last Admin: 07/12/18 09:13 Dose: Not Given Glucagon (Glucagon) 1 mg IM PRN PRN PRN Reason: Hypoglycemia Dextrose/Water (D5w) 1,000 mls @ 0 mls/hr IV .Q0M PRN PRN Reason: Hypoglycemia Insulin Human Regular (Humulin R) 0 units SC .MILD SLIDING SCALE PRN PRN Reason: Mild Correctional Scale Insulin Human Regular (Humulin R) 0 units SC .BEDTIME SLIDING SC PRN PRN Reason: Bedtime Correctional Scale Levothyroxine Sodium (Synthroid) 50 mcg PO 0600 [facility] Last Admin: 07/12/18 05:52 Dose: 50 mcg Metoprolol Succinate (Toprol Xl) 25 mg PO DAILY [facility] Last Admin: 07/12/18 09:13 Dose: 25 mg Ondansetron HCl (Zofran) 4 mg IVP Q6H PRN PRN Reason: Nausea/Vomiting Polyethylene Glycol (Miralax) 17 gm PO DAILY [facility] Last Admin: 07/12/18 09:13 Dose: 17 gm Senna/Docusate Sodium (Senokot S) 1 tab PO BID [facility] Last Admin: 07/12/18 09:13 Dose: 1 tab Tramadol HCl (Ultram) 50 mg PO Q6H PRN PRN Reason: Pain Last Admin: 07/12/18 05:51 Dose: 50 mg
[2018-07-13] MEDS: Levothyroxine Sodium 50 MCG TAB PO SCH (05:25)
[2018-07-13 05:43] LABS: #Eosinphils 0.5 thou/uL (0.0-0.7); #Lymphocytes 1.3 thou/uL (1.20-3.40); #Monocytes 0.9 thou/uL (0.11-0.59); %Basophils 0.6 % (0.0-1.0); %Eosinophils 6.2 % (0.0-10.0); %Lymphocytes 16.5 % (21.0-51.0); %Monocytes 11.8 % (0.0-10.0); %Neutrophils 64.9 % (42.0-75.0); Hemoglobin 12.9 g/dL (14.0-18.0); Mean Corpuscular HGB CONC 31.9 g/dL (32.0-36.0); Mean Corpuscular Hemoglobin 27.9 pg (27.0-31.0); Mean Corpuscular Volume 87.6 fL (78.0-98.0); Mean Platelet Volume 7.1 fL (7.4-10.4); Platelet Count 422 thou/uL (130-400); RBC Distribution Width 14.2 % (11.5-14.5); Red Blood Cell (RBC) Count 4.61 mill/uL (4.70-6.10); White Blood Cell (WBC) Count 7.7 thou/uL (4.8-10.8)
[2018-07-13 05:58] LABS: Anion Gap 12 mmol/L (10-20); BUN (Urea Nitrogen) 16 mg/dL (8.4-25.7); Calc. Creatinine Clearance 65 mL/min (70-130); Calcium 8.4 mg/dL (7.8-10.44); Carbon Dioxide 25 mmol/L (23-31); Chloride 100 mmol/L (98-107); Estimated GFR-MDRD 57; Glucose 129 mg/dL (83-110); Magnesium 1.6 mg/dL (1.6-2.6); Potassium 4.2 mmol/L (3.5-5.1); Sodium 133 mmol/L (136-145)
[2018-07-13] MEDS: Glimepiride 1 MG TAB PO SCH (10:28)
[2018-07-13] MEDS: Famotidine 20 MG TAB PO SCH (10:30)
[2018-07-13] MEDS: Senokot S 8.6-50 MG TAB PO SCH (10:30)
[2018-07-13] MEDS: Carbidopa/Levodopa 25-250 mg Tablet PO SCH ×2 (10:31→12:14)
[2018-07-13] MEDS: Polyethylene Glycol 3350 17 GM Packet PO SCH (10:32)
[2018-07-13] MEDS: Clotrimazole 1 % Cream 30 GM TUBE TOP SCH (10:32)
[2018-07-13] MEDS: Clotrimazole 1% Cream 15 GM TUBE TOP SCH (10:33)
--- NOTE | 2018-07-13 14:50 | DIS ---
DATE OF ADMISSION: 07/10/2018 DATE OF DISCHARGE: 07/13/2018 DISCHARGE DISPOSITION: To [facility]. ALLERGIES: LEVAQUIN. DISCHARGE MEDICATIONS: Same as admission medication. 1. Sinemet 25/250 one tablet four times a day. 2. Clotrimazole cream twice a day. 3. Levothyroxine 50 mcg daily. 4. Toprol-XL 25 mg daily. 5. Pravastatin 40 mg at bedtime. 6. Ranitidine 150 mg q.p.m. 7. Tylenol as needed. 8. Glimepiride 0.5 mg three times daily with meals. 9. MiraLAX 17 g daily. 10. Senokot-S one tablet b.i.d. INPATIENT POLICY AND PLANNING MANAGER: 1. Cardiovascular, Dr. Krishnan. 2. Pulmonary, Dr. Valentino Resendiz. The patient was seen and examined on the day of discharge. Denies any new complaints. No chest pain, shortness of breath, palpitations reported. BRIEF HOSPITAL COURSE: The patient is an 83-year-old male with diabetes mellitus type 2, hypertension, and benign prostatic hypertrophy, currently residing at [facility], was brought in to the hospital with shortness of breath. Echocardiogram obtained at the facility showed pericardial effusion with early tamponade. The patient was monitored in the Intermediate Care Unit. He underwent pericardial window on 11 July 2018, draining 500 mL of bloody pericardial fluid. The fluid was sent for cytology, which came back negative. He was monitored closely in the Intermediate Care Unit after the procedure. He has been cleared by Dr. Krishnan, Cardiovascular for discharge. FINAL DIAGNOSES: 1. Shortness of breath secondary to pericardial effusion with early tamponade, status post pericardial window. 2. Acute on chronic diastolic heart failure exacerbation secondary to #1. 3. Hyperlipidemia. 4. Hypertension. 5. Diabetes mellitus type 2. 6. Parkinson disease. 7. Chronic indwelling Pena catheter with recent catheter-associated UTI . 8. Physical deconditioning. 9. Obesity with a BMI of 30.1. 10. Chronic kidney disease stage 3. 11. Hyponatremia. 12. Chronic anemia. TIME SPENT: Total time coordinating the discharge of this patient was 33 minutes. LABORATORY AND IMAGING DATA: Pericardial fluid, glucose 73, LDH 802, total protein 5.5. Echocardiogram as discussed above. PLAN: Plan of care was discussed with the patient in detail. He stated understanding. Job ID: [id number]
[2018-07-13 15:06] VITALS: BP 149/78
[2018-07-13 16:00] VITALS: TEMP 98.2
--- NOTE | 2018-07-13 16:11 | PRG ---
DATE OF SERVICE: 07/13/2018 SERVICE: Pulmonary Medicine. INTERVAL HISTORY: The patient is doing fine from respiratory standpoint. He is not having chest pain anymore. He is eating a little bit better. Otherwise, there has been no interval change to his condition. He is tolerating, being diuresed twice daily. He does not have any specific complaints, and nursing reports no overnight events. PHYSICAL EXAMINATION: VITAL SIGNS: Afebrile, pulse 73, blood pressure 135/67, respirations 21, and saturation 98% on room air. GENERAL: The patient is awake and alert, in no apparent distress. LUNGS: Decent air entry. No crackles are present any longer. There is no prolonged expiratory phase or wheezing. HEART: Normal rate and regular. ABDOMEN: Soft, nontender, and nondistended. Bowel sounds are positive. MUSCULOSKELETAL: No cyanosis or clubbing. There is 1+ pitting in bilateral lower extremities. NEUROLOGIC: Grossly nonfocal. LABORATORY DATA: WBC 7.7, hemoglobin 12.9, and platelets 422,000. INR 1.1. Basic metabolic profile is otherwise unremarkable. Magnesium 1.6. ASSESSMENT: 1. Acute hypoxic respiratory failure, resolved. 2. Acute on chronic diastolic heart failure. 3. Cardiac tamponade, status post pericardial window, postop day 2. 4. Parkinson disease. DISCUSSION AND PLAN: The patient is stable for transition out of the IMCU to the telemetry unit. The fluid appears to be inflammatory in nature. Additional diagnostic studies are currently pending. Once the patient leaves the IMCU, he will have no further requirements for inpatient Pulmonary/Critical Care opinion, and I will sign off. Please call with additional questions or concerns through time. Job ID: [id number] [facility]
--- NOTE | 2018-07-15 16:43 | EKG ---
Test Reason : Blood Pressure : / mmHG Vent. Rate : 075 BPM Atrial Rate : 075 BPM P-R Int : 174 ms QRS Dur : 124 ms QT Int : 408 ms P-R-T Axes : 037 -55 064 degrees QTc Int : 455 ms Normal sinus rhythm Left axis deviation T wave abnormality, consider lateral ischemia T wave inversion V1-V4 Abnormal ECG Confirmed by YENIFER EPPS DO ([id number]), rewrite editor CHELSEA MORA ([id number]) on 07/15/2018 4:43:04 PM Referred By: Confirmed By:YENIFER EPPS DO
== END 2018-07-13 02:30 | DRG 270 ==
LOC: ERS 19:56 → IMCU/EMU 22:01
PROVIDERS: ADMIT Internal Medicine; ATTEND Internal Medicine
PROC: 0W9D0ZZ Drainage of Pericardial Cavity, Open Approach (ICD-10-PCS; principal; 2018-07-11)
DX: I31.3 Pericardial effusion (noninflammatory) (principal); I50.33 Acute on chronic diastolic (congestive) heart failure; J96.01 Acute respiratory failure with hypoxia; I13.0 Hypertensive heart and chronic kidney disease with heart failure and stage 1 through stage 4 chronic kidney disease, or unspecified chronic kidney disease; E87.1 Hypo-osmolality and hyponatremia; G20 Parkinson's disease; I31.4 Cardiac tamponade; E11.22 Type 2 diabetes mellitus with diabetic chronic kidney disease; M19.90 Unspecified osteoarthritis, unspecified site; E78.5 Hyperlipidemia, unspecified; E66.9 Obesity, unspecified; N40.0 Benign prostatic hyperplasia without lower urinary tract symptoms; N18.3 Chronic kidney disease, stage 3 (moderate); D64.9 Anemia, unspecified; Z85.51 Personal history of malignant neoplasm of bladder; Z90.49 Acquired absence of other specified parts of digestive tract; Z90.89 Acquired absence of other organs; Z98.890 Other specified postprocedural states; Z88.1 Allergy status to other antibiotic agents; Z68.30 Body mass index [BMI] 30.0-30.9, adult
CPT/HCPCS: 36415; 36416; 71045; 80048; 80053; 82945; 83519; 83615; 83735; 83880; 84100; 84157; 84443; 84484; 85014; 85018; 85025; 85610; 85730; 88112; 88305; 93005; 94660; 94760; J0670; J2001; J2704; J3010